=== PATIENT | male | born 1975 | race Caucasian/White ===

== ENCOUNTER → 2016-09-02 | Outpatient (CLI) | payer BC ==
[2016-05-26 16:11] VITALS: BP 108/63
[2016-09-02 13:14] LABS: BASOPHILS # (AUTO) 0.1 X10^3/uL (0.0-0.1); BASOPHILS % (AUTO) 0.7 % (0.2-1.0); EOSINOPHILS # (AUTO) 0.2 x10^3/uL (0.0-0.2); EOSINOPHILS % (AUTO) 2.4 % (0.9-2.9); HEMATOCRIT 43.9 % (42.0-54.0); HEMOGLOBIN 15.2 g/dL (13.5-18.0); LYMPHOCYTES # (AUTO) 1.7 X10^3/uL (1.3-2.9); LYMPHOCYTES % (AUTO) 18.8 % (21.0-51.0); MEAN CORPUSCULAR HEMOGLOBIN 31.3 pg (27.0-34.0); MEAN CORPUSCULAR HGB CONC 34.5 g/dL (33.0-35.0); MEAN CORPUSCULAR VOLUME 90.7 fL (80.0-100.0); MEAN PLATELET VOLUME 8.9 fL (7.4-11.0); MONOCYTES # (AUTO) 0.4 x10^3/uL (0.3-0.8); MONOCYTES % (AUTO) 4.3 % (0.0-13.0); NEUTROPHILS # (AUTO) 6.7 x10^3/uL (2.2-4.8); NEUTROPHILS % (AUTO) 73.8 % (42.0-75.0); PLATELET COUNT 211 X10^3/uL (150.0-450.0); RED BLOOD COUNT 4.84 X10^6/uL (4.7-6.0); RED CELL DISTRIBUTION WIDTH 12.7 % (11.6-16.5)
[2016-09-02 13:17] LABS: ALANINE AMINOTRANSFERASE 37 Units/L (12-78); ALBUMIN 3.9 g/dL (3.4-5.0); ALKALINE PHOSPHATASE 57 Units/L (46-116); ASPARTATE AMINO TRANSFERASE 24 Units/L (15-37); BLOOD UREA NITROGEN 7 mg/dL (7-18); CALCIUM 8.7 mg/dL (8.5-10.1); CHLORIDE 105 mmol/L (98-107); COR NA(FOR HYPERGLY) 145 mmol/L (136-145); GLUCOSE 129 mg/dL (65-99); SODIUM 144 mmol/L (136-145); TOTAL PROTEIN 7.3 g/dL (6.4-8.2); eGFR BLACK RACES > 60 (>60); eGFR NON BLACK RACES > 60 (>60)
== END ==
LOC: LAB 12:39
PROVIDERS: ATTEND Internal Medicine
DX: L03.113 Cellulitis of right upper limb (principal); M79.1 Myalgia
CPT/HCPCS: 36415; 80053; 85025; 87040

== ENCOUNTER 2018-06-14 09:16 | Observation (INO) ==
--- NOTE | 2018-06-14 09:51 | DR.CP ---
HPI Time Seen Time Seen by Provider: 06/14/18 09:45 PCP Primary Care Physician: DR RUTLEDGE HPI Comment HPI Comment: PRECORDIAL CHEST PAIN 12/31, SHARP THROBBING RADIATING TO LEFT ARM. Complaint Chief Complaint Doctor Comments: CHEST PAIN SINCE THIS AM. Chief Complaint:: PT WOKE UP THIS MORNING WITH SHARP STABBING PAIN INTO LEFT SIDE OF CHEST THAT RADIATES INTO LEFT ARM AND LEFT ARM FEELS LIKE THROBBING CONSTANT PAIN. PAIN IS WORSENED BY TAKING DEEP BREATHS. Source History Provided: Patient Mode of Arrival Mode of Arrival: Ambulatory Timing Onset of Chief Complaint: 06/14/18 Came on: Suddenly Pain: Present Now Duration Duration: Intermittent Duration: Hours Location Location of Chest Pain: Left and Chest Chest Pain Radiation Location: Left Arm Context Onset: At rest Cardiac Risk Factors: Smoker and Family History PE Risk Factors: None History of: None Prehospital Care: None Quality Quality: Sharp and Stabbing Severity Severity: Moderate Modifying Factors Worsens: Breathing Impoves: Nothing Associated Signs and Symptoms Associated Signs and Symptoms: Shortness of Breath PMH PMH Past Medical History: Yes Past Medical History: GERD Past Surgical History: Yes Surgical History: Bowel Resection Past Surgical History Comment: 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, HERNIA REPAIR, GASTRIC SLEEVE Family History History of Family Medical Conditions: Yes Family Medical History: Diabetes Mellitus, Cancer, [place], Coronary Artery Disease a nd Hypertension Social History Does patient currently use any type of tobacco product: Yes Have you used tobacco products in the last 12 months: Yes Type of Tobacco Use: Cigarettes Does any household member use tobacco: Yes Alcohol Use: DAILY Lives With: Spouse Lives Where: Home infectious screening In the last 2 months have you had wt loss of >10#?: NO Have you had fever, night sweats or hemotysis?: No Have you traveled outside the country in the last 6 months?: No Isolation: Standard ROS Review of Systems Constitutional: No Symptoms Reported, Weakness and Fatigue Eyes: No Symptoms Reported ENTM: No Symptoms Reported Respiratoy: Short of Breath Cardiovascular: Chest Pain Gastrointestinal/Abdominal: No Symptoms Reported Genitourinary: No Symptoms Reported Neurological: No Symptoms Reported Musculoskeletal: No Symptoms Reported Integumentary: No Symptoms Reported Hematologic/Lymphatic: No Symptoms Reported Endocrine: No Symptoms Reported Psychiatric: No Symptoms Reported All Other Systems: Reviewed and Negative PE Vitals Vitals: Temperature 97.9 F Pulse Rate [Right Brachial] 68 Pulse Rate 81 Respiratory Rate 20 Blood Pressure [Right Arm] 137/78 Blood Pressure [Left Arm] 116/66 Blood Pressure 155/73 O2 Sat by Pulse Oximetry 100 General Limitations: No Limitations General Appearance: Alert and In No Apparent Distress Head Head Exam: Normal Inspection Eyes Eye exam: Normal Appearance ENT ENT Exam: Normal Exam Chest Chest Inspection: Normal Inspection Respiratory Respiratory Exam: Normal Lung Sounds Bilat Respiratory Exam: Bilateral: Clear to Auscultation Cardiovascular Cardiovascular Exam: Regular Rate and Normal Rhythm Pulse: Normal Edema: Normal Abdominal Exam Abdominal Exam: Normal Inspection, Normal Bowel Sounds and Soft Extremities Extremities Exam: Normal Inspection Back Back Exam: Normal Inspection Neurologic Neurological Exam: Alert and Oriented X3 Psychiatric Psychiatric Exam: Normal Affect and Normal Mood; negative Anxious Skin Skin Exam: Warm, Dry, Intact and Normal Color MDM Additional Information Additional Information Obtained From: Family Differential Diagnosis Differential Diagnosis: Angina, Chest Wall Pain, CHF, Costochondritis, Esophag eal Reflux/Spasm, Gastritis, Myocardial Infarction, Pericarditis, Pleuritis, Pancreatitis, Pneumothorax and Pulmonary Embolus COURSE Treatment Treatment: SEE ORDERS. ROR Labs Reviewed Result Diagrams: 06/14/18 10:17 06/14/18 10:17 Laboratory: WBC 8.2 X10^3/uL (3.6-10.0) 06/14/18 10:17 RBC 5.02 X10^6/uL (4.7-6.0) 06/14/18 10:17 Hgb 16.5 g/dL (13.5-18.0) 06/14/18 10:17 Hct 46.7 % (42.0-54.0) 06/14/18 10:17 MCV 93.0 fL (80.0-100.0) 06/14/18 10:17 MCH 32.9 pg (27.0-34.0) 06/14/18 10:17 MCHC 35.4 g/dL (33.0-35.0) H 06/14/18 10:17 RDW 12.8 % (11.6-16.5) 06/14/18 10:17 Plt Count 226 X10^3/uL (150.0-450.0) 06/14/18 10:17 MPV 8.6 fL (7.4-11.0) 06/14/18 10:17 Neut % (Auto) 70.6 % (42.0-75.0) 06/14/18 10:17 Lymph % (Auto) 18.3 % (21.0-51.0) L 06/14/18 10:17 [place] % (Auto) 8.5 % (0.0-13.0) 06/14/18 10:17 Eos % (Auto) 2.2 % (0.9-2.9) 06/14/18 10:17 Baso % (Auto) 0.4 % (0.2-1.0) 06/14/18 10:17 Neut # (Auto) 5.8 x10^3/uL (2.2-4.8) H 06/14/18 10:17 Lymph # (Auto) 1.5 X10^3/uL (1.3-2.9) 06/14/18 10:17 [place] # (Auto) 0.7 x10^3/uL (0.3-0.8) 06/14/18 10:17 Eos # (Auto) 0.2 x10^3/uL (0.0-0.2) 06/14/18 10:17 Baso # (Auto) 0.0 X10^3/uL (0.0-0.1) 06/14/18 10:17 Absolute Nucleated RBC 0.0 /100WBC 06/14/18 10:17 D-Dimer < 100 ng/mL (0-400) 06/14/18 10:17 Sodium 142 mmol/L (136-145) 06/14/18 10:17 Corrected Sodium TNP 06/14/18 10:17 Potassium 4.4 mmol/L (3.5-5.1) 06/14/18 10:17 Chloride 106 mmol/L (98-107) 06/14/18 10:17 Carbon Dioxide 28.5 mmol/L (21-32) 06/14/18 10:17 BUN 11 mg/dL (7-18) 06/14/18 10:17 Creatinine 0.77 mg/dL (0.70-1.30) 06/14/18 10:17 Est GFR (MDRD) Af Amer > 60 (>60) 06/14/18 10:17 Est GFR (MDRD) Non-Af > 60 (>60) 06/14/18 10:17 Glucose 85 mg/dL (65-99) 06/14/18 10:17 Calcium 9.3 mg/dL (8.5-10.1) 06/14/18 10:17 Corrected Calcium TNP 06/14/18 10:17 Total Bilirubin 0.60 mg/dL (0.2-1.0) 06/14/18 10:17 AST 32 Units/L (15-37) 06/14/18 10:17 ALT 49 Units/L (12-78) 06/14/18 10:17 Alkaline Phosphatase 59 Units/L (46-116) 06/14/18 10:17 Creatine Kinase 124 Units/L (39-308) 06/14/18 10:17 CK-MB (CK-2) 1.1 ng/mL (0-4.0) 06/14/18 10:17 CK/CKMB % Calc 0.9 % (<4) 06/14/18 10:17 Troponin I < 0.02 ng/mL (0-1.5) 06/14/18 10:17 Total Protein 7.1 g/dL (6.4-8.2) 06/14/18 10:17 Albumin 3.9 g/dL (3.4-5.0) 06/14/18 10:17 Globulin 3.2 g/dL (2.5-4.5) 06/14/18 10:17 Albumin/Globulin Ratio 1.2 Ratio (1.1-2.1) 06/14/18 10:17 Specimen Type Clean catch urine 06/14/18 10:31 Urine Color Yellow (YELLOW) 06/14/18 10:31 Urine Appearance Clear (CLEAR) 06/14/18 10:31 Urine pH 8.0 (5.0 - 8.0) 06/14/18 10:31 Ur Specific [place] 1.010 (1.000-1.030) 06/14/18 10:31 Urine Protein Negative (NEGATIVE) 06/14/18 10:31 Urine Glucose (UA) Negative (NEGATIVE) 06/14/18 10:31 Urine Ketones Negative (NEGATIVE) 06/14/18 10:31 Urine Occult Blood Negative (NEGATIVE) 06/14/18 10:31 Urine Nitrite Negative (NEGATIVE) 06/14/18 10:31 Urine Bilirubin Negative (NEGATIVE) 06/14/18 10:31 Urine Urobilinogen Normal (NORMAL) 06/14/18 10:31 Ur Leukocyte Esterase 1+ (NEGATIVE) 06/14/18 10:31 Urine RBC None seen /HPF (NONE SEEN) 06/14/18 10:31 Urine WBC 0-2 /HPF (NONE SEEN) 06/14/18 10:31 Ur Squamous Epith Cells Rare /HPF (NEGATIVE) 06/14/18 10:31 Urine Bacteria Trace /HPF (NEGATIVE) 06/14/18 10:31 Ur Culture Indicated? No/not indicated 06/14/18 10:31 XRAY XRAY Interpreted by: Radiologist XRAY Findings: REPORT NOTED AND DISCUSS WITH PATIENT(SEE DETAIL ON RECOD). EKG [place]: Normal Rhythm: NSR and Afib (A FIB NON SUSTAIN.) Block: None Hypertrophy: None ST: Normal
[2018-06-14 10:27] LABS: BASOPHILS % (AUTO) 0.4 % (0.2-1.0); EOSINOPHILS # (AUTO) 0.2 x10^3/uL (0.0-0.2); EOSINOPHILS % (AUTO) 2.2 % (0.9-2.9); HEMATOCRIT 46.7 % (42.0-54.0); HEMOGLOBIN 16.5 g/dL (13.5-18.0); LYMPHOCYTES # (AUTO) 1.5 X10^3/uL (1.3-2.9); LYMPHOCYTES % (AUTO) 18.3 % (21.0-51.0); MEAN CORPUSCULAR HEMOGLOBIN 32.9 pg (27.0-34.0); MEAN CORPUSCULAR HGB CONC 35.4 g/dL (33.0-35.0); MEAN PLATELET VOLUME 8.6 fL (7.4-11.0); MONOCYTES # (AUTO) 0.7 x10^3/uL (0.3-0.8); MONOCYTES % (AUTO) 8.5 % (0.0-13.0); NEUTROPHILS # (AUTO) 5.8 x10^3/uL (2.2-4.8); NEUTROPHILS % (AUTO) 70.6 % (42.0-75.0); PLATELET COUNT 226 X10^3/uL (150.0-450.0); RED BLOOD COUNT 5.02 X10^6/uL (4.7-6.0); RED CELL DISTRIBUTION WIDTH 12.8 % (11.6-16.5); WHITE BLOOD COUNT 8.2 X10^3/uL (3.6-10.0)
--- NOTE | 2018-06-14 10:33 | RAD ---
AP chest Indication: Chest pain Findings: Trachea is midline. Heart size is normal. No focal airspace opacity, pleural effusion or pneumothorax. Vertically oriented linear increased density within the right supraclavicular region and superior right hemithorax potentially represents either a catheter or calcification from previous catheter/shunt removal for which clinical correlation is needed. No acute osseous abnormality identified. Impression: No acute cardiopulmonary abnormality. Please see above discussion. Reported By:
[2018-06-14 10:39] LABS: BILIRUBIN,URINE NEGATIVE (NEGATIVE); BLOOD/HEMOGLOBIN,URINE NEGATIVE (NEGATIVE); GLUCOSE, URINE NEGATIVE (NEGATIVE); KETONES,URINE NEGATIVE (NEGATIVE); LEUKOCYTE ESTERASE ,URINE 1+ (NEGATIVE); NITRITES,URINE NEGATIVE (NEGATIVE); PROTEIN,URINE NEGATIVE (NEGATIVE); UROBILINOGEN,URINE NORMAL (NORMAL)
[2018-06-14 10:41] LABS: BLOOD UREA NITROGEN 11 mg/dL (7-18); CALCIUM 9.3 mg/dL (8.5-10.1); CARBON DIOXIDE 28.5 mmol/L (21-32); CHLORIDE 106 mmol/L (98-107); CREATININE 0.77 mg/dL (0.70-1.30); SODIUM 142 mmol/L (136-145); TROPONIN I < 0.02 ng/mL (0-1.5); eGFR NON BLACK RACES > 60 (>60)
[2018-06-14 10:42] LABS: APPEARANCE,URINE CLEAR (CLEAR); COLOR,URINE YELLOW (YELLOW)
[2018-06-14 10:46] LABS: ALANINE AMINOTRANSFERASE 49 Units/L (12-78); ALBUMIN 3.9 g/dL (3.4-5.0); ALKALINE PHOSPHATASE 59 Units/L (46-116); ASPARTATE AMINO TRANSFERASE 32 Units/L (15-37); CKMB % 0.9 % (<4); CREATINE KINASE 124 Units/L (39-308); CREATINE KINASE MB 1.1 ng/mL (0-4.0); TOTAL PROTEIN 7.1 g/dL (6.4-8.2)
[2018-06-14 10:48] LABS: BACTERIA,URINE TRACE /HPF (NEGATIVE); RBC,URINE NONE SEEN /HPF (NONE SEEN); SQUAMOUS EPITHELIAL CELL,UR RARE /HPF (NEGATIVE)
[2018-06-14] MEDS ORDERED: MORPHINE SULFATE INJ 2 MG INJ IVP PRN (11:19)
[2018-06-14] MEDS ORDERED: ATIVAN TAB 1 MG PO PRN (11:19)
[2018-06-14] MEDS ORDERED: NITROSTAT SL PRN (11:19)
[2018-06-14] MEDS ORDERED: ZOFRAN INJ 4 MG VIAL IVP PRN (11:26)
[2018-06-14] MEDS ORDERED: ASPIRIN 81 MG CHEWTAB ONE (11:30)
[2018-06-14] MEDS ORDERED: ASPIRIN 81 MG CHEWTAB PO ONE (11:30)
[2018-06-14] MEDS: PEPCID 20 MG IV PREMIX* 20 MG/50 ML BAG IV SCH ×2 (11:31→20:31)
[2018-06-14] MEDS: NS 1000 ML 1,000 ML IV SCH (11:31)
[2018-06-14] MEDS: NICOTINE PATCH TD SCH (15:38)
[2018-06-14 15:51] VITALS: BMI 26.9
[2018-06-14 16:57] LABS: CREATINE KINASE 100 Units/L (39-308); CREATINE KINASE MB < 1.0 ng/mL (0-4.0); TROPONIN I < 0.02 ng/mL (0-1.5)
[2018-06-14] MEDS ORDERED: LOVENOX INJ 40 MG SYR SC ONE (18:08)
[2018-06-14] MEDS: LOVENOX INJ 40 MG SYR SC SCH (18:20)
[2018-06-14 23:29] LABS: CKMB % 1.1 % (<4); CREATINE KINASE 92 Units/L (39-308); CREATINE KINASE MB < 1.0 ng/mL (0-4.0); TROPONIN I < 0.02 ng/mL (0-1.5)
[2018-06-15] MEDS: NS 1000 ML 1,000 ML IV SCH (01:29)
[2018-06-15 05:58] LABS: BASOPHILS # (AUTO) 0.1 X10^3/uL (0.0-0.1); BASOPHILS % (AUTO) 1.1 % (0.2-1.0); EOSINOPHILS # (AUTO) 0.3 x10^3/uL (0.0-0.2); EOSINOPHILS % (AUTO) 3.8 % (0.9-2.9); HEMATOCRIT 43.1 % (42.0-54.0); LYMPHOCYTES # (AUTO) 2.2 X10^3/uL (1.3-2.9); LYMPHOCYTES % (AUTO) 29.5 % (21.0-51.0); MEAN CORPUSCULAR HEMOGLOBIN 32.8 pg (27.0-34.0); MEAN CORPUSCULAR HGB CONC 34.8 g/dL (33.0-35.0); MEAN CORPUSCULAR VOLUME 94.3 fL (80.0-100.0); MONOCYTES # (AUTO) 0.5 x10^3/uL (0.3-0.8); MONOCYTES % (AUTO) 7.1 % (0.0-13.0); NEUTROPHILS # (AUTO) 4.3 x10^3/uL (2.2-4.8); NEUTROPHILS % (AUTO) 58.5 % (42.0-75.0); PLATELET COUNT 196 X10^3/uL (150.0-450.0); RED BLOOD COUNT 4.57 X10^6/uL (4.7-6.0); RED CELL DISTRIBUTION WIDTH 12.6 % (11.6-16.5); WHITE BLOOD COUNT 7.3 X10^3/uL (3.6-10.0)
[2018-06-15 06:34] LABS: ALANINE AMINOTRANSFERASE 38 Units/L (12-78); ALKALINE PHOSPHATASE 48 Units/L (46-116); ASPARTATE AMINO TRANSFERASE 21 Units/L (15-37); BLOOD UREA NITROGEN 10 mg/dL (7-18); CALCIUM 8.2 mg/dL (8.5-10.1); CARBON DIOXIDE 27.6 mmol/L (21-32); CHLORIDE 109 mmol/L (98-107); CHOL/HDL RATIO 2.1 (0.0-5.0); CHOLESTEROL 123 mg/dL (0-200); CREATININE 0.76 mg/dL (0.70-1.30); HDL CHOLESTEROL 58 mg/dL (40-60); SODIUM 144 mmol/L (136-145); TOTAL PROTEIN 5.7 g/dL (6.4-8.2); TRIGLYCERIDES 27 mg/dL (0-150); eGFR NON BLACK RACES > 60 (>60)
[2018-06-15] MEDS: NICOTINE PATCH TD SCH (08:38)
[2018-06-15] MEDS: PEPCID 20 MG IV PREMIX* 20 MG/50 ML BAG IV SCH (08:38)
[2018-06-15] MEDS: LOVENOX INJ 40 MG SYR SC SCH (08:48)
[2018-06-15] MEDS ORDERED: ASPIRIN PO SCH (09:00)
[2018-06-15] MEDS ORDERED: PROTONIX TAB 40 MG PO SCH (09:00)
[2018-06-15 12:23] VITALS: BP 110/65
--- NOTE | 2018-06-28 21:44 | DR.CARTERS ---
Short Stay Summary - Admission Date Date of Admission: 06/14/18 - Discharge Date Discharge Date: 06/15/18 - Admission Diagnoses (1) Chest pain, rule out acute myocardial infarction Status: Acute - Hospital Course Hospital Course: IS A 43 YEAR OLD PATIENT OF OURS WHO PRESENTED TO THE EMERGENCY ROOM WITH COMPLAINTS OF CHEST PAIN THAT RADIATED TO THE LEFT ARM. PAIN WAS DESCRIBED SHARP AND STABBING. HE REPORTED THAT PAIN IS WORSE WHEN HE TAKES A DEEP BREATH. SYMPTOMS REPORTEDLY STARTED UPON AWAKENING. ON ARRIVAL, VITALS WERE 97.9-81-18-100%-155/73. LABS WERE OBTAINED. HE WAS HEMODYNAMICALLY STABLE. CARDIAC ENZYMES WITHIN NORMAL LIMITS. EKG REVEALED: ATRIAL FIBRILLATION WITH HR 69. CHES XRAY REVEALED: NO ACUTE CARDIOPULMONARY ABNORMALITY. HE WAS ADMITTED FOR FURTHER EVALUATION AND TREATMENT OF CHEST PAIN RULE OUT ACUTE NM. HE WAS STARTED ON LOVENOX 40MG SC DAILY, PEPCID 20MG IV Q12H, ASPIRIN DAILY, AND NORMAL SALINE AT 75ML/HR. WE PLAN TO FOLLOW UP WITH SERIAL CARDIAC ENZYMES AND EKGS. ON THE MORNING FOLLOWING ADMISSION, PATIENT IS ALERT AND ORIENTED, LYING IN BED ON MORNING ROUNDS. HE DENIES CHEST PAIN OR SHORTNESS OF BREATH AND REPORTS FEELING WELL. HIS VITALS THIS MORNING ARE 97.9-81-18-100%-155/73. LABS WERE OBTAINED. ABNORMAL LAB VALUES INCLUDE THE FOLLOWING: RBC 4.57, CHLORIDE 109, CALCIUM 8.2, TOTAL PROTEIN 5.7, ALBUMIN 3.0. CARDIAC ENZYMES WITHIN NORMAL LIMITS. MOST RECENT EKG REVEALED SINUS RHYTHM WITH HR 79. WE PLANNED FOR DISCHARGE. INSTRUCTIONS FOR MEDICATIONS AND DISCHARGE WERE DISCUSSED WITH PATIENT AND FAMILY. THEY VERBALIZED UNDERSTANDING OF ORDERS. HE WAS GIVEN NEW PRESCRIPTIONS FOR ASPIRIN 325MG PO DAILY, METOPROLOL XR 12.5MG PO DAILY, AND ROSUVASTATIN 10MG PO DAILY. HE WAS INSTRUCTED TO RESUME HOME MEDICATIONS. WE WILL OBTAIN AN OUTPATIENT ECHO AND CARDIOLITE IN THE OFFICE. HE WAS DISCHARGED HOME WITH FAMILY IN STABLE CONDITION. - Discharge Medications Discharge Medications: Home Medication List aspirin 325 mg PO QDAY #100 tab 06/15/18 [Rx] metoprolol succinate 12.5 mg PO QDAY #30 tab 06/15/18 [Rx] rosuvastatin 10 mg PO QDAY #30 tab 06/15/18 [Rx] Prescriptions: aspirin Shailesh Gilliland metoprolol succinate Shailesh Gilliland rosuvastatin Shailesh Gilliland - Discharge Plan Disposition: 01 HOME, SELF-CARE Condition: Stable Prescriptions: aspirin 325 mg PO QDAY #100 tab metoprolol succinate 12.5 mg PO QDAY #30 tab rosuvastatin 10 mg PO QDAY #30 tab - Follow up/Referrals Follow up/Referrals: Shailesh Gilliland [Primary Care Provider] - 06/22/18 10:30 am - Instructions Instructions: Steps to Quit Smoking, [id number], Coping with Quitting Smoking, Shortness of Breath, Adult, [id number], Weakness, [id number], Chest Wall Pain, [id number], Nonspecific Chest Pain, [id number], Secondhand Smoke, Atrial Fibrillation, [id number] Additional Instructions: DIET TOLERATED. ACTIVITY TOLERATED. Forms: Patient Portal
== END 2018-06-15 12:20 | disposition home or self-care (01) ==
LOC: ER 09:16 → MED/SURG 09:16
PROVIDERS: ADMIT Internal Medicine; ATTEND Internal Medicine
DX: R94.31 Abnormal electrocardiogram [ECG] [EKG]; M79.602 Pain in left arm; I48.91 Unspecified atrial fibrillation; Z79.899 Other long term (current) drug therapy; R07.89 Other chest pain
CPT/HCPCS: 36415; 71010; 71045; 80053; 80061; 81001; 82550; 82553; 83735; 84484; 85025; 85378; 93005; 94760; 96365; 96367; 96372; 96374; 99282; 99284; A4222; S0028; G0378; J1650; J7030